=== PATIENT | female | born 1960 | race Caucasian/White ===

== ENCOUNTER 2019-03-24 08:00 | Inpatient (IN) | payer OTHER ==
[2019-03-17 08:46] VITALS: BMI 45.7
--- NOTE | 2019-03-24 07:44 | HP ---
Admitting History and Physical - Admission Chief Complaint: right hip osteoarthritis x years History of Present Illness: 58 year old female presents in regard to their right hip. Long-standing history of right hip osteoarthritis. Patient complains of pain, limited range of motion , difficulty ambulating, and difficulty with activities of daily living. Patient has failed conservative treatment options including PO medications, activity modification, injections, and exercise programs. At this point, patient like to proceed with surgical intervention, right total hip arthroplasty MAKOplasty. History Source: Patient - Past Medical History Cardiovascular: Yes: HTN ...: No Dermatology: Yes: Psoriasis - Past Surgical History Additional Past Surgical History: See written history & physical. - Advance Directives Advance Directives: Yes: Health Care Proxy - Smoking History Smoking history: Never smoked Have you smoked in the past 12 months: No - Alcohol/Substance Use Hx Alcohol Use: No Home Medications - Allergies Allergies/Adverse Reactions: Allergies Allergy/AdvReac Type Severity Reaction Status Date / Time Penicillins Allergy Intermediate Rash Verified 03/17/19 08:36 - Home Medications Home Medications: Ambulatory Orders Apremilast [Otezla] 30 mg PO BID 03/17/19 Cholecalciferol (Vitamin D3) [Vitamin D3] 5,000 unit PO DAILY 03/17/19 Losartan 50Mg/Hctz 12.5MG [Hyzaar -] 1 tab PO DAILY 03/17/19 Review of Systems - Review of Systems Musculoskeletal: reports: Decreased ROM (right hip), Joint Pain (right hip) Physical Examination Constitutional: Yes: Well Nourished, No Distress Eyes: Yes: Conjunctiva Clear HENT: Yes: Atraumatic, Normocephalic Neck: Yes: Supple Cardiovascular: Yes: Regular Rate and Rhythm Respiratory: Yes: Regular Gastrointestinal: Yes: Soft ...Rectal Exam: Yes: Deferred Musculoskeletal: Yes: Joint Stiffness (right hip), Joint Swelling (right hip) Assessment/Plan 58 year old female presents in regard to their right hip. Long-standing history of right hip osteoarthritis. Patient complains of pain, limited range of motion , difficulty ambulating, and difficulty with activities of daily living. Patient has failed conservative treatment options including PO medications, activity modification, injections, and exercise programs. At this point, patient like to proceed with surgical intervention, right total hip arthroplasty MAKOplasty. Pros, cons, risks, benefits, and alternatives of a right total hip arthroplasty MAKOplasty were discussed with the patient at length. Patient confirms their understanding and consents to proceed with a right total hip arthroplasty MAKOplasty.
[~2019-03-24 08:00] MED LIST: CEFAZOLIN 3 GM in DEXTROSE 5%-WATER - 50 ML IVPB ONE; CELECOXIB 200 MG CAPSULE PO ONE; GABAPENTIN 300 MG CAPSULE (FP) PO ONE; PANTOPRAZOLE 40 MG TABLET (FP) PO ONE; ROPIVICAINE 0.2%/MORPH PF/KETOROLAC - 51ML DISP.SYRINGE IA ONE; TRANEXAMIC ACID 1000 MG/10 ML VIAL IVPUSH ONE; oxyCODONE HCL 10 MG SUSTAINED ACTING TABLET PO ONE
[2019-03-24] MEDS ORDERED: MIDAZOLAM HCL 2 MG/2 ML SINGLE DOSE VIAL ONE ×2 (11:31→11:52)
[2019-03-24] MEDS ORDERED: BUPIVACAINE HCL/PF (5 MG/ML) 30 ML VIAL IJ ONE (11:31)
[2019-03-24] MEDS ORDERED: PROPOFOL 20 ML ONE ×8 (11:52→16:13)
[2019-03-24] MEDS ORDERED: TRANEXAMIC ACID 1000 MG/10 ML VIAL ONE ×2 (11:54→12:23)
[2019-03-24] MEDS ORDERED: ceFAZolin SODIUM 1 GM VIAL ONE ×4 (11:54→20:47)
[2019-03-24] MEDS ORDERED: SODIUM CHLORIDE 0.9% P/F 10 ML VIAL IJ ONE (12:00)
[2019-03-24] MEDS ORDERED: VANCOMYCIN 1,000 MG VIAL (RESTRICTED TO ID ONLY) ONE (12:23)
[2019-03-24] MEDS ORDERED: ROPIVICAINE 0.2%/MORPH PF/KETOROLAC - 51ML DISP.SYRINGE IA ONE ×2 (12:27→15:53)
[2019-03-24] MEDS ORDERED: VANCOMYCIN 1,000 MG VIAL (RESTRICTED TO ID ONLY) IVPB ONE (15:52)
[2019-03-24] MEDS ORDERED: TRANEXAMIC ACID 1000 MG/10 ML VIAL IVPUSH ONE (15:53)
[2019-03-24] MEDS ORDERED: HYDROmorphone HCL 0.5 MG/0.5 ML SYRINGE ONE ×3 (17:02→17:58)
[2019-03-24] MEDS: HYDROmorphone HCL CARPU-JECT 1 MG/1 ML DISP.SYRIN IVPUSH PRN ×3 (17:02→18:00)
[2019-03-24] MEDS ORDERED: ONDANSETRON 4 MG/2 ML VIAL IVPUSH PRN ×2 (17:03→17:50)
[2019-03-24] MEDS ORDERED: ONDANSETRON 4 MG/2 ML VIAL ONE (17:05)
[2019-03-24] MEDS ORDERED: LACTATED RINGERS SOLUTION 1,000 ML IV SCH ×2 (17:15→18:00)
[2019-03-24] MEDS ORDERED: ACETAMINOPHEN INJECTION 100 ML IVPB ONE (17:32)
[2019-03-24] MEDS ORDERED: KETOROLAC TROMETHAMINE 30 MG/1 ML VIAL ONE (17:32)
[2019-03-24] MEDS ORDERED: traMADol HCL 50 MG TABLET ONE (17:32)
[2019-03-24] MEDS ORDERED: ACETAMINOPHEN 1000 MG/100 ML VIAL (NON FORMULARY) IVPB ONE (17:38)
--- NOTE | 2019-03-24 17:38 | OP ---
Operative Note - Note: Operative Date: 03/24/19 Pre-Operative Diagnosis: right hip OA Operation: right LOLI KO Findings: see dictation Post-Operative Diagnosis: Same as Pre-op Surgeon: Moustapha Green Crusher Foreman: Kelin Baker Anesthesia: Spinal Estimated Blood Loss (mls): 200
[2019-03-24] MEDS: KETOROLAC TROMETHAMINE 30 MG/1 ML VIAL IVPUSH SCH (17:40)
[2019-03-24] MEDS: traMADol HCL 50 MG TABLET PO SCH (17:40)
[2019-03-24] MEDS ORDERED: MAG HYDROX/AL HYDROX/SIMETH 30 ML UNIT-DOSE CUP PO PRN (17:50)
[2019-03-24] MEDS ORDERED: MAGNESIUM HYDROX 2400MG/30ML ORAL SUSPENSION 30 ML CUP PO PRN (17:50)
[2019-03-24] MEDS ORDERED: CEFAZOLIN 3 GM in DEXTROSE 5%-WATER 100 ML IVPB SCH (18:00)
[2019-03-24] MEDS ORDERED: oxyCODONE HCL 5 MG TABLET PO PRN (18:14)
[2019-03-24] MEDS ORDERED: DEXTROSE 5%-WATER 100 ML IVPB ONE (20:47)
[2019-03-24] MEDS: GABAPENTIN 300 MG CAPSULE (FP) PO SCH (21:40)
[2019-03-24] MEDS: SENNOSIDES/DOCUSATE COMBO (SENNA PLUS) TABLET (UD) PO SCH (21:40)
[2019-03-24] MEDS: CELECOXIB 200 MG CAPSULE PO SCH (21:41)
[2019-03-24] MEDS: ASCORBIC ACID 500 MG TABLET (FP) PO SCH (21:41)
[2019-03-24] MEDS: CEFAZOLIN 3 GM in DEXTROSE 5%-WATER 100 ML IVPB SCH (21:42)
[2019-03-24] MEDS ORDERED: PATIENT'S OWN MEDICATION (NON-FORMULARY) (Apremilast [Otezla] 30 MG) PO SCH (22:00)
[2019-03-25] MEDS ORDERED: DEXAMETHASONE SOD PHOSPHATE 10 MG/1 ML VIAL IVPB ONE
[2019-03-25] MEDS: traMADol HCL 50 MG TABLET PO SCH ×5 (01:10→23:31)
[2019-03-25] MEDS: KETOROLAC TROMETHAMINE 30 MG/1 ML VIAL IVPUSH SCH ×3 (01:11→12:54)
[2019-03-25] MEDS ORDERED: ceFAZolin SODIUM 1 GM VIAL ONE (04:01)
[2019-03-25] MEDS ORDERED: DEXTROSE 5%-WATER 100 ML IVPB ONE (04:02)
[2019-03-25] MEDS: CEFAZOLIN 3 GM in DEXTROSE 5%-WATER 100 ML IVPB SCH (04:22)
[2019-03-25 08:23] LABS: HEMATOCRIT 38.2 % (32.4-45.2); HEMOGLOBIN 12.9 GM/dl (10.7-15.3); MCH 30.1 pg (25.7-33.7); MCHC 33.9 g/dl (32.0-36.0); MEAN CELL VOLUME 88.8 fl (80-96); MEAN PLT VOLUME 8.4 fl (7.5-11.1); PLATELET COUNT 301 K/MM3 (134-434); RDW 12.5 % (11.6-15.6); WHITE BLOOD COUNT 9.7 K/mm3 (4.0-10.8)
[2019-03-25 08:25] LABS: CREATININE 0.6 mg/dl (0.55-1.3); POTASSIUM 4.6 mmol/L (3.5-5.1)
[2019-03-25] MEDS: ASPIRIN 325 MG TABLET PO SCH (08:32)
--- NOTE | 2019-03-25 08:48 | SPEC ---
DATE OF OPERATION: 03/24/2019 PREOPERATIVE DIAGNOSIS: Right hip osteoarthritis. POSTOPERATIVE DIAGNOSIS: Right hip osteoarthritis. PROCEDURE PERFORMED: Right total hip replacement with MAKOplasty robotic navigation. SURGEON: Soni Morales M.D. SAMPLE ROOM SUPERVISOR: BHASKAR Irizarry ANESTHESIA: Spinal plus sedation. ESTIMATED BLOOD LOSS: 200 mL. COMPLICATIONS: None. DISPOSITION: The patient was transferred to the PACU in stable condition. IMPLANTS USED: Mccalla Accolade II size 6 femoral component, Mccalla Trident II 52-mm acetabular component with 25 and 30-mm acetabular screws, MDM bipolar head ball and liner with inner ceramic head ball. INDICATIONS: This is a 58-year-old female who presented to the office complaining of severe right hip pain. She was seen and examined by Dr. Morales and diagnosed with severe right hip osteoarthritis. The patient was initially treated nonoperatively with conservative treatments, but continued to have severe pain and ambulatory dysfunction. She was therefore indicated for a right total hip replacement. The risks, benefits and alternatives to the procedure were explained to the patient in great detail, and she elected to proceed with the surgery. DESCRIPTION OF PROCEDURE: On the day of surgery, the patient was taken to the operating room and placed on the OR table. Spinal anesthesia was administered by the anesthesiologist. The patient was then positioned in the lateral decubitus position on the table and all bony prominences were padded. An axillary roll was placed. The operative hip was then prepped and draped in the usual sterile fashion and intravenous antibiotics were given for infection prophylaxis. A surgical time-out was then performed with the team, and the patients identity, procedure, side, availability of implants, and the administration of antibiotics were confirmed. An approximately 15-cm longitudinal incision was made through the skin centered on the greater trochanter of the hip. This dissection was carried down through the subcutaneous tissues to the deep fascia. This fascia was then incised and a Cobra was placed around the inferior femoral neck. Electrocautery was used to reflect the anterior 40% of the gluteus medius and minimus starting at the musculotendinous junction and leaving a cuff for closure. This was reflected to reveal the capsule of the hip joint. An anterior capsulectomy was performed and the femoral head and neck were visualized. Grade 4 changes were noted diffusely throughout the joint. At this point, three small stab incisions were made superior to the main incision along the iliac crest. Three self-drilling Steinmann pins were then placed and the MediaPass pelvic array was attached. Reference points on the limb were then entered into the robotic device and the limb length deficiency, offset, and femoral neck resection level were then calculated by the software. The hip was then dislocated with traction and external rotation. An oscillating saw was used to make the femoral neck cut at the level previously templated, and the femoral head was removed. Attention was then turned to the acetabulum. Retractors were then placed around the acetabulum and the labrum was removed. An acetabular checkpoint pin and the MediaPass software were used to register the contours of the acetabulum. The acetabulum was then reamed in a single stage to the preoperatively templated size using the MediaPass robotic arm. The appropriately sized cup was then impacted and had solid fixation as well as the preset inclination and version of 40 and 20 degrees, respectively. A polyethylene liner was then placed in the cup. Attention was then turned back to the femur, which was externally rotated for improved visualization. A femoral neck elevator was used to present the femoral neck cut, a box osteotome was used to enter the femoral canal, and a canal finder was used to go down the femoral shaft. The James broaches were used sequentially until the optimal scratch fit was achieved. This correlated with the preoperatively templated size. From here, several different offset head and neck configurations were tested until excellent stability and length were obtained. These measurements were quantified using the MediaPass software. All trial components were then removed, the femur was copiously irrigated, and the final components were placed. Leg length and stability were checked again and found to be excellent. Irrigation was performed again. Wound closure was started by repairing the abductor muscles with a no. 2 FiberWire stitch in a Krackow configuration passed through bone tunnels in the greater trochanter and tied over a bony bridge. This repair was then reinforced with a 0 V-Loc 180 barbed suture. Next, no. 1 Polysorb and 0 V-Loc 180 were used to close the fascia. The deep subcutaneous tissue was closed with no. 1 Polysorb sutures, and 2-0 Polysorb was used for the superficial subcutaneous tissue. The skin was closed using both 3-0 V-Loc 90 suture in a running subcuticular fashion and SwiftSet skin adhesive. The James array and pins were removed from the iliac crest and the stab incision sites were irrigated and closed with 4-0 Polysorb sutures and SwiftSet skin adhesive. Once this was completed, a sterile dressing was applied. The patient was then awakened and taken to the PACU in stable condition. ADDENDUM: After final implants were placed, a 3-minute dilute Betadine lavage was performed. Following this, the wound was then irrigated with normal saline and wound closure was begun. SONI MORALES M.D. [id number]
[2019-03-25] MEDS: LOSARTAN 50MG/HCTZ 12.5MG 1 TAB (FP) PO SCH (09:41)
[2019-03-25] MEDS: ASCORBIC ACID 500 MG TABLET (FP) PO SCH ×2 (09:42→21:26)
[2019-03-25] MEDS: CELECOXIB 200 MG CAPSULE PO SCH ×2 (09:43→21:26)
[2019-03-25] MEDS: SENNOSIDES/DOCUSATE COMBO (SENNA PLUS) TABLET (UD) PO SCH ×2 (09:43→21:26)
[2019-03-25] MEDS: oxyCODONE HCL 5 MG TABLET PO PRN ×2 (09:43→21:28)
[2019-03-25] MEDS: GABAPENTIN 300 MG CAPSULE (FP) PO SCH ×2 (09:44→21:26)
[2019-03-25] MEDS ORDERED: MULTIVITAMINS (DAILY MVI) TABLET (FP) PO SCH (10:00)
[2019-03-25] MEDS ORDERED: PANTOPRAZOLE 40 MG TABLET (FP) PO SCH (10:00)
--- NOTE | 2019-03-25 14:18 | PN ---
Progress Note (short form) - Note Progress Note: ANESTHESIA POSTOP 58 YO FEMALE POD#1 S/P R KO, spinal and PNB Patient walking in with assistance. No complaints. Pain adequately controlled. No n/v VSS, Afebrile Continue current care, encouraged IS and ambulation/participation in PT, No anesthetic complications
--- NOTE | 2019-03-25 21:20 | PN ---
Progress Note (short form) - Note Progress Note: Pt seen and examined. Doing well. AVSS Selected Entries 03/25/19 03/25/19 21:00 21:34 Temperature 98.1 F Pulse Rate 74 Respiratory 18 Rate Blood Pressure 121/48 L O2 Sat by Pulse 99 Oximetry (%) Laboratory Tests 03/25/19 03/25/19 07:37 07:37 WBC 9.7 Hgb 12.9 Hct 38.2 Plt Count 301 Sodium 136 Potassium 4.6 Chloride 104 Carbon Dioxide 26 Anion Gap 6 L BUN 15.0 Creatinine 0.6 Random Glucose 142 H Gen: NAD RLE: c/d/i, NVID A/P 58yo female POD #1 s/p R KO PT/OOB D/C home in AM
--- NOTE | 2019-03-25 22:49 | DS ---
Physical Examination Vital Signs: Vital Signs Temperature 98.1 F 03/25/19 21:34 Pulse Rate 74 03/25/19 21:34 Respiratory Rate 18 03/25/19 21:34 Blood Pressure 121/48 L 03/25/19 21:34 O2 Sat by Pulse Oximetry (%) 99 03/25/19 21:00 Labs: CBC, BMP 03/25/19 07:37 03/25/19 07:37 Discharge Summary Reason For Visit: OSTEOARTHRITIS OF RIGHT HIP Current Active Problems Primary osteoarthritis of right hip (Acute) Procedures: Principal: right LOLI KO Hospital Course: Admitted for elective surgery. Procedure performed without complications. Pt received postoperative antibiotic prophylaxis and DVT ppx. Ambulated with physical therapy. Stable for discharge home with outpatient followup. Condition: Stable - Instructions Diet, Activity, Other Instructions: Dr Green - Hip Replacement Instructions Keep the Aquacel dressing on until removed by Dr. Green in 10-14 days - it is antibacterial and waterproof and you can shower with it on. Call the office for a follow-up appointment with Dr. Green in 10-14 days. [phone] Take one Aspirin 325mg daily for 6 weeks to prevent blood clots in your legs. Take one Pantoprazole 40mg daily for 6 weeks to protect against heartburn and ulcers. Take Cephalexin (antibiotic) 3x/day for 10 days to help prevent skin infection. Take Celebrex 200mg twice daily for 30 days to reduce swelling and inflammation. Take a multivitamin, stool softener and extra Vitamin C supplement daily. For pain: *Mild pain (1-3/10): Take 1 Tramadol tablet every 4 hours as needed. Moderate pain (4-6/10): Take 1 Tramadol tablet and 1 Percocet tablet every 4 hours as needed. Severe pain (7-10/10): Take 1 Tramadol tablet and 2 Percocet tablets every 4 hours as needed. Activity: You can put as much weight on the operative leg as you want. For the first 6 weeks, all you need to do is walk around the house, go up/down stairs, and sit down/get up. After 6 weeks when everything is healed (and bone has grown into the implant) you will be sent for more intensive outpatient physical therapy. Always use a walker or cane for balance and to prevent falls. Expect to see swelling / bruising from the operative site all the way down to your toes. Wear the compression stocking on the operative side during the day to minimize how much swelling there is in your foot/ankle. Don't wear the stocking at night. You don't have to wear the stocking on the other side. Disposition: VNS/HOME HEALTH CARE - Home Medications Comprehensive Discharge Medication List: Ambulatory Orders Apremilast [Otezla] 30 mg PO BID 03/17/19 Cholecalciferol (Vitamin D3) [Vitamin D3] 5,000 unit PO DAILY 03/17/19 Losartan 50Mg/Hctz 12.5MG [Hyzaar -] 1 tab PO DAILY 03/17/19 Ascorbic Acid [Vitamin C -] 500 mg PO BID tablet 03/25/19 Aspirin [ASA -] 325 mg PO DAILY@0800 tablet 03/25/19 Celecoxib [CeleBREX -] 200 mg PO BID #60 capsule 03/25/19 Cephalexin Monohydrate [Keflex -] 500 mg PO TID #30 capsule 03/25/19 Multivitamins [Multivit (RH Formulary)] 1 tab PO DAILY tab 03/25/19 Oxycodone HCl/Acetaminophen [Percocet 5-325 mg Tablet] 1 - 2 tab PO Q4H PRN #60 tablet MDD 10 03/25/19 Pantoprazole Sodium [Protonix -] 40 mg PO DAILY #40 tablet.ec 03/25/19 Sennosides/Docusate Sodium [Pericolace -] 2 tablet PO BID tablet 03/25/19 traMADol HCL [Ultram -] 50 mg PO Q4H PRN #42 tablet MDD 6 03/25/19
[2019-03-26] MEDS: traMADol HCL 50 MG TABLET PO SCH ×2 (06:44→12:25)
[2019-03-26 06:55] VITALS: TEMP 98.2
[2019-03-26] MEDS: ASPIRIN 325 MG TABLET PO SCH (08:30)
[2019-03-26 08:36] LABS: HEMATOCRIT 35.1 % (32.4-45.2); HEMOGLOBIN 12.1 GM/dl (10.7-15.3); MCH 30.2 pg (25.7-33.7); MCHC 34.3 g/dl (32.0-36.0); MEAN PLT VOLUME 8.6 fl (7.5-11.1); PLATELET COUNT 274 K/MM3 (134-434); RBC 3.99 M/mm3 (3.60-5.2); RDW 12.4 % (11.6-15.6)
[2019-03-26 10:10] VITALS: BP 125/62; PULSE 70
[2019-03-26] MEDS: oxyCODONE HCL 5 MG TABLET PO PRN (10:15)
[2019-03-26] MEDS: LOSARTAN 50MG/HCTZ 12.5MG 1 TAB (FP) PO SCH (10:16)
[2019-03-26] MEDS: GABAPENTIN 300 MG CAPSULE (FP) PO SCH (10:16)
[2019-03-26] MEDS: CELECOXIB 200 MG CAPSULE PO SCH (10:16)
--- NOTE | 2019-03-26 14:54 | PATH ---
Surgical Pathology Report Patient Name: HAIDER ROBIN [facility]. Rec. #: [id number] /Age/Gender: 1960 (Age: 58) / F Account: [id number] Location: [facility] Taken: 03/24/2019 Received: 03/24/2019 Reported: 03/26/2019 Physicians: Moustapha Green M.D. Specimen(s) Received RIGHT FEMORAL HEAD Clinical History Right hip osteoarthritis Final Diagnosis FEMORAL HEAD, RIGHT, TOTAL HIP REPLACEMENT: DEGENERATIVE JOINT DISEASE. Electronically Signed Jennifer Reynolds M.D. Gross Description Received in formalin, labeled "right femoral head," is a 4.5 x 4.4 x 4.0 cm. femoral head with a 1.1 cm in length portion of femoral neck attached. The margin of resection is smooth. There is a 3.7 cm in greatest dimension area of eburnation present. The remaining articular surface is myles-yellow and diffusely granular. The underlying trabecular bone is yellow and hard. A district sales representative section is submitted in one cassette, following decalcification. /03/25/2019 [facility]03/25/2019
== END 2019-03-26 13:00 | disposition home health service (06) | DRG 470 ==
LOC: FM/S 08:53
PROVIDERS: ADMIT Student in an Organized Health Care Education/Training Program; ATTEND Student in an Organized Health Care Education/Training Program
PROC: 8E0W0CZ Robotic Assisted Procedure of Trunk Region, Open Approach (ICD-10-PCS; 2019-03-24)
PROC: 0SR90JZ Replacement of Right Hip Joint with Synthetic Substitute, Open Approach (ICD-10-PCS; principal; 2019-03-24 13:46)
DX: M16.11 Unilateral primary osteoarthritis, right hip (principal)
CPT/HCPCS: 36415; 73502-TC-RT-FY; 80048; 85027; 88305-TC; 88311-TC; 94760; 97116-GP; 97163-GP; J0131; J1100